=== PATIENT | female | born 2000 | race Asian ===

== ENCOUNTER 2022-03-18 23:38 | Inpatient (IN) | payer BC, SELFPAY ==
[2022-03-18 23:47] VITALS: BP 120/82; PULSE 84; O2SAT 99; BMI 18.3
--- NOTE | 2022-03-19 00:20 | ED.PSYCH ---
HPI - Psych General Chief Complaint: Psychiatric Symptoms Stated Complaint: +si Time Seen by Provider: 03/18/22 23:52 Source: patient Mode of arrival: EMS History of Present Illness HPI Narrative: Patient history of depression intervention student in [employer] comes here as feeling more depressed says from the relationship with her ex-boyfriend was suicidal with a plan to cut her wrist with history of same in the past when she attempted currently she feels okay . She is not taking any medications Related Data Allergies Allergy/AdvReac Type Severity Reaction Status Date / Time No Known Allergies Allergy Verified 03/19/22 00:32 Review of Systems Review of Systems: Yes all other systems are reviewed and are negative [facility] Social History Social History Advance Directives: No Physical Exam Vital Signs: Vital Signs: Last Vital Signs Temp 97.8 F 03/19/22 03:50 Pulse 59 03/19/22 03:50 Resp 16 03/19/22 05:54 BP 96/58 L 03/19/22 03:50 Pulse Ox 100 03/19/22 03:50 O2 Del Method 03/19/22 03:50 BMI result Body Mass Index 18.3 Appearance: Alert. Oriented X3. No acute distress. Eyes: PERRLA, No Nystagmus ENT: Pharynx normal. Oral Mucosa moist Neck: Normal inspection. Neck supple. CVS: Normal heart rate and rhythm. Pulses normal. Respiratory: No respiratory distress. Equal air entry bilateral, no wheezing/rales/rhonchi Abdomen: Soft and nontender. Bowel sounds are present, no mass palpable, no CVA tenderness Skin: Skin warm and dry. Normal skin color. Normal skin turgor. Extremities: No lower extremity edema. No calf tenderness psych;, cooperative denies any SI plan at this time no hallucinations or delusions Neuro: Oriented X 3. No motor deficit. No sensory deficit.No cerebellar signs , cranial nerves II-XII intact MDM - Psych MDM Narrative Medical decision making narrative: Patient with significant history of depression with history of cutting her wrist in the past feel suicidal at this time with nonspecific reasons will get crisis involved. Case [place] [facility] [place] [phone] who spoke to the patient before arrival Differential Diagnosis Differential diagnosis: Likely suicidal ideation and depression Lab Data Attestation: I reviewed the patient's lab results. Labs: Lab Results 03/19/22 Range/Units 02:00 COVID-19 ([facility]) Negative (Negative) COVID-19 Clin Com See Note Discharge Plan Discharge Clinical Impression: Suicidal ideation, Depression Patient Disposition: Still a Patient
[2022-03-19 02:16] LABS: COVID-19 Test Negative (Negative); IDNOW Serial# 16C4AD1C
[2022-03-19 03:50] VITALS: BP 96/58; PULSE 59; TEMP 36.6; O2SAT 100
[2022-03-19 05:54] VITALS: RESP 16
--- NOTE | 2022-03-19 06:43 | PC.NURSE ---
report given to ALETA Amaral
--- NOTE | 2022-03-19 07:27 | PC.NURSE ---
patient appears to remain asleep at present respirations are even and unlabored patient appears in no distress
[2022-03-19 10:59] LABS: Appearance Urine Clear; Color Urine Yellow; Glucose Urine UA Negative (Negative); Leukocyte Esterase Urine Negative (Negative); Nitrite Urine Negative (Negative); Specific Gravity - Urine 1.015 (1.005-1.025); Urine Blood Negative (Negative); Urine Ketones Negative (Negative); Urine Protein Negative (Neg-Trace)
[2022-03-19 11:01] LABS: UPreg QC Valid YES; Urine Pregnancy NEGATIVE (NEGATIVE)
[2022-03-19 11:30] LABS: Amphetamine Screen Urine Not Detected (Not Detect); Barbiturates, Urine Not Detected (Not Detect); Benzodiazepines Screen Urine Not Detected (Not Detect); Cannabinoid Screen Urine Not Detected (Not Detect); Cocaine Screen Urine Not Detected (Not Detect); Fentanyl, urine Not Detected (Not Detect); Opiate Screen Urine Not Detected (Not Detect); Phencyclidine Screen Urine Not Detected (Not Detect)
[2022-03-19 13:00] VITALS: BP 91/55; PULSE 60; RESP 16; TEMP 36.7; O2SAT 99
--- NOTE | 2022-03-19 19:36 | PC.NURSE ---
report received from ALETA Deshpande pt appear sleep no signs of acute distress notice breathing equally unlabored close monitoring maintained
--- NOTE | 2022-03-19 23:50 | PC.NURSE ---
Pt signed a 3 day notice of intent to revoke her conditional voluntary shortly after admission on 03/19/22; it is up on Friday.
--- NOTE | 2022-03-20 01:38 | PC.ADMIT ---
A single, Czech-speaking female, aged 21 years [facility] as [facility] CV following referral from [facility] and CARE team. Pt signed a 3 day notice shortly after admission was completed. Pt says this is her first inpatient psychiatric hospitalization. Pt presented to [facility] on 03/18/22 via ambulance from [facility] for an evaluation of homicidal ideation. Pt had stated to her therapist that she had homicidal ideation towards a special person in another country whose head she wanted to cut off. Pt had also stated to therapist she had cut her wrist and had enjoyed seeing the blood flow. Pt stated to this radio script writer (TR) that she had last cut herself about 6 months ago. Pt described herself to her therapist as unpredictable. Pt has no providers other than [place] [facility] [place] Pt's therapist was concerned about pt's suicidal thinking but was more concerned with the safety of others because pt is easily stressed by the pressure of schoolwork and grades, friendships and quickly becomes unraveled which turns to anger followed by homicidal thoughts. Pt has a history of childhood trauma and endorsed PTSD symptoms including dissociation. Pt had several suicide attempts with the first occurring at age 7 years per CARE team assessment. Pt says has not been on psychiatric meds before. Pt denied SI/HI and says can seek help from staff. Pt denies current AH/VH but says has experienced this at times in the past. Pt rated anxiety at 0/10, depression 4/10. Pt says sleeps only 3-6 hours per night with difficulty falling asleep. Pt says she is anxious around other human beings and has difficulty interacting with others. Pt denies any medical issue. Pt denies Etoh or substance use and LIANG was negative. Nurse:nurse done, admission orders obtained, safety tool and initial treatment plan done. Pt is resting in room on 15 minute safety checks at this time.
[2022-03-20 09:24] VITALS: BP 94/55; PULSE 57; RESP 14; TEMP 36.2; O2SAT 97
[2022-03-20 10:02] LABS: Estimated Average Glucose 103 mg/dL; Hemoglobin A1c % 5.2 %
[2022-03-20 10:42] LABS: Cholesterol 239 mg/dL; HDL Cholesterol 88 mg/dL; LDL Cholesterol Calculated 143 mg/dl; Magnesium 2.2 mg/dL (1.6-2.6); Thyroid Stimulating Hormone 0.48 uIU/mL (0.32-4.0); Triglycerides 42 mg/dL
[2022-03-20 11:01] LABS: Folate 11.6 ng/mL (> or = 4.0); Vitamin B12 1034 pg/mL (200-900)
[2022-03-20 11:30] LABS: Free T4 (Free Thyroxine) 1.02 ng/dL (0.71-1.85)
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
[2022-03-21] MEDS: risperiDONE 0.5 MG TABLET PO ×2 (08:55→20:12)
[2022-03-21 14:00] VITALS: BP 110/64; PULSE 92; TEMP 36.2
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
[2022-03-21 17:35] VITALS: BP 108/66; PULSE 89; RESP 16; TEMP 36.4; O2SAT 99
[2022-03-21] MEDS: Mirtazapine 7.5 MG TABLET PO (20:12)
[2022-03-21] MEDS: traZODone HCL 50 MG TABLET PO (20:47)
[2022-03-22 08:00] VITALS: BP 105/65; PULSE 71; TEMP 36.2
[2022-03-22] MEDS: risperiDONE 0.5 MG TABLET PO (08:41)
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
[2022-03-22 16:23] VITALS: BP 123/72; PULSE 98; TEMP 36.8; O2SAT 99
[2022-03-22] MEDS: Mirtazapine 7.5 MG TABLET PO (22:25)
[2022-03-23 08:00] VITALS: BP 120/69; PULSE 127; TEMP 36.3
[2022-03-23] MEDS: risperiDONE 0.5 MG TABLET PO ×2 (09:02→23:04)
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
[2022-03-23 16:40] VITALS: BP 111/59; PULSE 91; TEMP 35.9
[2022-03-23] MEDS: Mirtazapine 7.5 MG TABLET PO (23:04)
[2022-03-24 08:00] VITALS: BP 102/61; PULSE 76; TEMP 36.5; O2SAT 100
[2022-03-24] MEDS: risperiDONE 0.5 MG TABLET PO ×2 (08:46→23:20)
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
[2022-03-24 17:20] VITALS: BP 110/58; PULSE 102; TEMP 36.9
[2022-03-24] MEDS: Mirtazapine 7.5 MG TABLET PO (23:20)
[2022-03-25 06:00] VITALS: BP 105/59; PULSE 79; RESP 16; TEMP 36.2; O2SAT 94
[2022-03-25] MEDS: risperiDONE 0.5 MG TABLET PO (09:55)
--- NOTE | 2022-03-25 18:28 | PM.PSYDC ---
DS: Providers Provider Date of Service: 03/25/22 Date of admission: 03/19/22 19:57 Date of discharge: 03/25/22 Primary care physician: None Physician Admitting clinician: Kerrie Fisher Attending physician on admission: Duc Augustin Attending physician on discharge: Duc Augustin Discharging clinician: Kerrie Fisher DS: Diagnosis Discharge Diagnosis (1) PTSD (post-traumatic stress disorder): Status: Acute (2) Severe recurrent major depression w/psychotic features, mood-congruent: Status: Acute DS: Medications Discharge Medications Home Medications: Previous Rx's Medication Instructions Recorded mirtazapine 7.5 mg tablet 7.5 mg PO BEDTIME #15 tabs 03/25/22 risperidone 0.5 mg tablet 0.5 mg PO BID #30 tabs 03/25/22 Mental Status Exam Mental Status Exam Patient Appearance: Appropriate Patient Orientation: Person, Place, Time and Situation Level of Consciousness: Alert Patient Behavior: Appropriate, Talkative, Cooperative and Good Eye Contact Mood Description: Appropriate Affect Description: Appropriate Patient Cognition Impaired: No Ability to Follow Directions: Good Speech Pattern: Spontaneous Speech Memory Description: Intact Hallucinations: None Delusions: Not Present Perceptual Disturbances: Depersonalization Thought Process: Intact and Goal Oriented Thought Content: positive for Intact and positive for Goal Oriented Depressive Symptoms: Thoughts of /Suicide (denies) Judgement: Good Data Data Completed and Pending Completed studies during hospitalization [Text1]: 03/19/22 03/19/22 03/19/22 02:00 10:51 10:51 Estimat Average Glucose Hemoglobin A1c % Magnesium Triglycerides Cholesterol LDL Cholesterol, Calc HDL Cholesterol Vitamin B12 Folate TSH Free T4 Urine Color Yellow Urine Appearance Clear Urine pH 6.0 Ur Specific [place] 1.015 Urine Protein Negative Urine Glucose (UA) Negative Urine Ketones Negative Urine Blood Negative Urine Nitrite Negative Ur Leukocyte Esterase Negative Urine Test NEGATIVE Urine Opiates Screen Urine Fentanyl Screen Ur Barbiturates Screen Ur Phencyclidine Scrn Ur Amphetamines Screen U Benzodiazepines Scrn Urine Cocaine Screen U Marijuana (THC) Screen COVID-19 (CAROL) Negative COVID-19 Clin Com See Note 03/19/22 03/20/22 03/20/22 10:51 08:37 08:37 Estimat Average Glucose 103 Hemoglobin A1c % 5.2 Magnesium 2.2 Triglycerides 42 Cholesterol 239 LDL Cholesterol, Calc 143 HDL Cholesterol 88 Vitamin B12 Folate TSH 0.48 Free T4 1.02 Urine Color Urine Appearance Urine pH Ur Specific [place] Urine Protein Urine Glucose (UA) Urine Ketones Urine Blood Urine Nitrite Ur Leukocyte Esterase Urine Test Urine Opiates Screen Not Detected Urine Fentanyl Screen Not Detected Ur Barbiturates Screen Not Detected Ur Phencyclidine Scrn Not Detected Ur Amphetamines Screen Not Detected U Benzodiazepines Scrn Not Detected Urine Cocaine Screen Not Detected U Marijuana (THC) Screen Not Detected COVID-19 (CAROL) COVID-19 Clin Com 03/20/22 08:37 Estimat Average Glucose Hemoglobin A1c % Magnesium Triglycerides Cholesterol LDL Cholesterol, Calc HDL Cholesterol Vitamin B12 1034 H Folate 11.6 TSH Free T4 Urine Color Urine Appearance Urine pH Ur Specific [place] Urine Protein Urine Glucose (UA) Urine Ketones Urine Blood Urine Nitrite Ur Leukocyte Esterase Urine Test Urine Opiates Screen Urine Fentanyl Screen Ur Barbiturates Screen Ur Phencyclidine Scrn Ur Amphetamines Screen U Benzodiazepines Scrn Urine Cocaine Screen U Marijuana (THC) Screen COVID-19 (CAROL) COVID-19 Clin Com DS: Summary Hospital Course Hospital Course: Admission to adult psychiatry for exacerbation of symptoms of depression, PTSD and situational crisis. Pt is attending a local [employer]. Family is out of the country. Pt experienced a recent loss of a relationship and expressed her distress, anger via SI, HI [employer]. Remeron and Risperdal (to assist with grounding her sx) were initiated. Pt was placed on medical leave from school for one year and she will stay with friends of her family in [place] and return home with a plan to appeal the school's decision and request to return in the spring 20[address] [facility] ([place], [place]). Pt was able to recompensate during the hospitalization and gain some perspective on her reactivity and its effect upon her school community. Time spent discussing smoking cessation with patient: 3 to 10 minutes Status at Discharge Functional status at discharge: independent ambulation Overall status at discharge: patient is progressing back to baseline Time Spent with Patient Time attestation: Total time spent providing and/or coordinating discharge services: 40 Time spent: Greater than 30 minutes Discharge Plan Discharge Anticipated Discharge Date/Time: 03/25/22 13:30 Patient Disposition: Xfer Other Discharge Diagnosis: PTSD Recurrent Major Depression Referrals: [facility] Intake Appointment-inperson [Other] - 03/26/22 11:00 am (This appointment is in person. It is an intake only, during this appointment a medication & therapy appointment will be made. ) Physician,None [Primary Care Provider] - 1 Week Discharge Medications: New risperidone 0.5 mg Tablet 0.5 mg PO BID Qty: 30 1RF mirtazapine 7.5 mg Tablet 7.5 mg PO BEDTIME Qty: 15 1RF Discharge Orders: Discharge Order (Routine); Ordered 03/25/22 Ordered By: Kerrie Fisher Diet: Advance to usual diet Activity on Discharge: As tolerated Stand Alone Forms: Patient Portal Discharge page Care Plan Goals: Maintain mood and safe behaviors Take medications as directed Practice coping skills Follow up with out patient providers Health Concerns: Stable mood and behaviors Plan of Treatment: Follow up with scheduled appointments Take medications as directed Assessment: Pt interviewed prior to discharge and found to be fully oriented and without any SI or HI. She exhibits insight and demonstrates judgment in wanting to continue treatment. She is not in imminent risk of harm to self or others and has a safety plan that includes presenting to the closest ER or calling 911 if feeling unsafe. She has been observed closely by nursing staff throughout her admission. She has not engaged in any behaviors that suggest dangerousness to self or others and has demonstrated appropriate behaviors and impulse control. Discharge Date/Time: 03/25/22 13:40
== END 2022-03-25 13:40 | disposition other institution (70) | DRG 751 ==
LOC: HO.ED 03-19 18:22 → HO.PM5 03-19 20:37
PROVIDERS: Admitting Provider Registered Nurse; Emergency Provider Internal Medicine; Visit Provider Clinical Nurse Specialist Psychiatric/Mental Health, Adult
DX: F33.3 Major depressive disorder, recurrent, severe with psychotic symptoms (principal); R45.851 Suicidal ideations; F43.10 Post-traumatic stress disorder, unspecified; Z20.822 Contact with and (suspected) exposure to COVID-19; Z79.899 Other long term (current) drug therapy; Z91.51 Personal history of suicidal behavior
CPT/HCPCS: 36415; 80061; 80307; 81003; 81025; 82607; 82746; 83036; 83735; 84439; 84443; 87635; 99284